=== PATIENT | male | born 1960 | race Caucasian/White ===

== ENCOUNTER 2018-12-20 17:35 | Emergency (ER) | payer OTHER ==
[~2018-12-20] VITALS: Ht 170.2 cm; Wt 89.8 kg
[2018-12-20 18:05] LABS: BASO % 0 % (0-3); EOS # 0.3 x10^3/uL (0.0-0.7); EOS % 4 % (0-3); HEMATOCRIT 52.7 % (39.0-53.0); HEMOGLOBIN 18.3 g/dL (13.0-17.5); LYMPH # 1.6 x10^3/uL (1.0-4.8); LYMPH % 25 % (24-48); MEAN CORPUSCULAR HEMOGLOBIN 32 pg (25-35); MEAN CORPUSCULAR HGB CONC 35 g/dL (31-37); MEAN CORPUSCULAR VOLUME 93 fL (79-100); MONO # 0.4 x10^3/uL (0.0-1.1); MONO % 7 % (0-9); NEUT % 63 % (31-73); PLATELET COUNT 151 x10^3/uL (140-400); RED BLOOD COUNT 5.65 x10^6/uL (4.30-5.70); RED CELL DISTRIBUTION WIDTH 13.2 % (11.5-14.5); WHITE BLOOD COUNT 6.3 x10^3/uL (4.0-11.0)
[2018-12-20 18:11] LABS: PROTHROMBIN TIME PATIENT 12.5 SEC (11.7-14.0)
[2018-12-20 18:20] LABS: CREATININE 1.2 mg/dL (0.7-1.3); GFR 62.2; POTASSIUM 4.3 mmol/L (3.5-5.1)
[2018-12-20 18:25] LABS: ALBUMIN 4.2 g/dL (3.4-5.0); ALBUMIN/GLOBULIN RATIO 1.3 (1.0-1.7); MAGNESIUM 2.2 mg/dL (1.8-2.4); TOTAL BILIRUBIN 0.6 mg/dL (0.2-1.0); TOTAL PROTEIN 7.5 g/dL (6.4-8.2)
--- NOTE | 2018-12-20 19:01 | PHYS DOC ---
Past Medical History Past Medical History: Diabetes-Type II, Hypertension Additional Past Medical Histor: "TACHYCARDIA" Past Surgical History: Pacemaker, Other Additional Past Surgical Histo: DEFIBRILLATOR Alcohol Use: Rarely Drug Use: None Adult General Chief Complaint Chief Complaint: Palpitations HPI HPI 58-year-old male with a history of what sounds to be a nonischemic cardiomyopathy with an AICD in place for about the last 20 years presents after 4 shocks today. Patient states approximately 3 PM today he heard a warnings [place] that he states sounded like an ambulance. During that time he had absolutely no symptoms he was out bending over and a wood shop. Approximately 2 hours later he received his first shock while he was at work and shortly thereafter he received another shot. He had no preceding symptoms. He called over a couple of employees to take him home so he could interrogate his pacemaker and during the ride back home which shocked twice more. After being shocked a total of 4 times he decided to come to the closest emergency department. Currently, he is having no symptoms. He states the last time he was shocked was many years ago. He states he has had his pacemaker replaced several times and has had lead malfunctions in the past.[] Review of Systems Review of Systems Constitutional: Denies fever or chills [] Eyes: Denies change in visual acuity, redness, or eye pain [] HENT: Denies nasal congestion or sore throat [] Respiratory: Denies cough or shortness of breath [] Cardiovascular: No additional information not addressed in HPI [] GI: Denies abdominal pain, nausea, vomiting, bloody stools or diarrhea [] : Denies dysuria or hematuria [] Musculoskeletal: Denies back pain or joint pain [] Integument: Denies rash or skin lesions [] Neurologic: Denies headache, focal weakness or sensory changes [] Endocrine: Denies polyuria or polydipsia [] All other systems were reviewed and found to be within normal limits, except as documented in this note. Allergies Allergies Allergies Coded Allergies Type Severity Reaction Last Updated Verified No Known Drug Allergies 12/20/18 No Physical Exam Physical Exam Constitutional: Well developed, well nourished, no acute distress, non-toxic appearance. [] HENT: Normocephalic, atraumatic, bilateral external ears normal, oropharynx moist, no oral exudates, nose normal. [] Eyes: PERRLA, EOMI, conjunctiva normal, no discharge. [] Neck: Normal range of motion, no tenderness, supple, no stridor. [] Cardiovascular:Heart rate regular rhythm, no murmur, pacemaker left upper chest [] Lungs & Thorax: Bilateral breath sounds clear to auscultation [] Abdomen: Bowel sounds normal, soft, no tenderness, no masses, no pulsatile masses. [] Skin: Warm, dry, no erythema, no rash. [] Back: No tenderness, no CVA tenderness. [] Extremities: No tenderness, no cyanosis, no clubbing, ROM intact, no edema. [] Neurologic: Alert and oriented X 3, normal motor function, normal sensory function, no focal deficits noted. [] Psychologic: Anxious. [] Current Patient Data Vital Signs Vital Signs Date Time Temp Pulse Resp B/P (MAP) Pulse Ox O2 Delivery O2 Flow Rate FiO2 12/20/18 17:40 98.7 65 18 155/75 (101) 95 Room Air 98.7 Lab Values Laboratory Tests Test 12/20/18 17:56 White Blood Count 6.3 x10^3/uL (4.0-11.0) Red Blood Count 5.65 x10^6/uL (4.30-5.70) Hemoglobin 18.3 g/dL (13.0-17.5) H Hematocrit 52.7 % (39.0-53.0) Mean Corpuscular Volume 93 fL (79-100) Mean Corpuscular Hemoglobin 32 pg (25-35) Mean Corpuscular Hemoglobin Concent 35 g/dL (31-37) Red Cell Distribution Width 13.2 % (11.5-14.5) Platelet Count 151 x10^3/uL (140-400) Neutrophils (%) (Auto) 63 % (31-73) Lymphocytes (%) (Auto) 25 % (24-48) Monocytes (%) (Auto) 7 % (0-9) Eosinophils (%) (Auto) 4 % (0-3) H Basophils (%) (Auto) 0 % (0-3) Neutrophils # (Auto) 4.0 x10^3uL (1.8-7.7) Lymphocytes # (Auto) 1.6 x10^3/uL (1.0-4.8) Monocytes # (Auto) 0.4 x10^3/uL (0.0-1.1) Eosinophils # (Auto) 0.3 x10^3/uL (0.0-0.7) Basophils # (Auto) 0.0 x10^3/uL (0.0-0.2) Prothrombin Time 12.5 SEC (11.7-14.0) Prothrombin Time INR 1.0 (0.8-1.1) Sodium Level 139 mmol/L (136-145) Potassium Level 4.3 mmol/L (3.5-5.1) Chloride Level 103 mmol/L (98-107) Carbon Dioxide Level 23 mmol/L (21-32) Anion Gap 13 (6-14) Blood Urea Nitrogen 20 mg/dL (8-26) Creatinine 1.2 mg/dL (0.7-1.3) Estimated GFR (Cockcroft-Gault) 62.2 BUN/Creatinine Ratio 17 (6-20) Glucose Level 161 mg/dL (70-99) H Calcium Level 9.0 mg/dL (8.5-10.1) Magnesium Level 2.2 mg/dL (1.8-2.4) Total Bilirubin 0.6 mg/dL (0.2-1.0) Aspartate Amino Transferase (AST) 14 U/L (15-37) L Alanine Aminotransferase (ALT) 24 U/L (16-63) Alkaline Phosphatase 63 U/L (46-116) Creatine Kinase 178 U/L (39-308) Troponin I Quantitative < 0.017 ng/mL (0.000-0.055) HP-Got-W-Type Natriuretic Peptide 26 pg/mL (0-124) Total Protein 7.5 g/dL (6.4-8.2) Albumin 4.2 g/dL (3.4-5.0) Albumin/Globulin Ratio 1.3 (1.0-1.7) Thyroid Stimulating Hormone (TSH) 1.786 uIU/mL (0.358-3.74) Laboratory Tests 12/20/18 17:56 Laboratory Tests 12/20/18 17:56 EKG EKG [] Interpretation Time: EKG: Normal sinus rhythm rate of [address]-T changes Radiology/Procedures Radiology/Procedures [] Impressions: Chest x-ray: No acute change noted as interpreted by me Course & Med Decision Making Course & Med Decision Making Pertinent Labs and Imaging studies reviewed. (See chart for details) [ED course: Evaluation reveals a 58-year-old male who is been shocked by his defibrillator 4 times today. Looking at the [employer] report it appears that he has a malfunctioning lead. I spoke with at [facility] who suggested we transfer him to [place] so they can take appropriate changes to his defibrillator. I discussed this plan with the patient and his family and they are in agreement.] Dragon Disclaimer Dragon Disclaimer This electronic medical record was generated, in whole or in part, using a voice recognition dictation system. Departure Departure Impression: Primary Impression: Malfunction of implantable defibrillator ventricular (ICD) lead Disposition: 05 TRANSFER OTHER Condition: STABLE Referrals: RAJ MEDINA (PCP) SENG BOOTH DO Dec 20, 2018 19:01
[2018-12-20 20:50] VITALS: BP 155/74
--- NOTE | 2018-12-21 07:06 | EKG ---
[facility] [address] [place] [address] Test Date: 2018-12-20 Test Time: 17:49:13 Pat Name: YASMIN ALLISON Department: Room: Gender: M Healthcare Representative: CT : 1960 Requested By: BERNADETTE WHITNEY Order Number: [id number] Reading MD: Wilner Og MD Measurements Intervals [place] Rate: 66 P: 49 [place]: 168 QRS: 49 QRSD: 102 T: -22 QT: 370 QTc: 389 Interpretive Statements SINUS RHYTHM NON-SPECIFIC ST/T CHANGES Electronically Signed On 01-02-2019 9:47:14 CDT by Wilner Og MD
--- NOTE | 2018-12-21 07:49 | RAD ---
Examination: PORTABLE CHEST 1V History: PALPITATION Comparison/Correlation: None Findings: Portable upright frontal view chest was obtained. Dual-lead left-sided ICD is present. Heart size and pulmonary vascular are normal. No infiltrate or pleural effusion. No pneumothorax. Bony structures are grossly unremarkable. Impression: No active disease. Electronically signed by: Domingo Zarate MD (12/21/2018 7:46 AM) [facility]
== END 2018-12-20 21:50 | disposition short-term general hospital (02) ==
LOC: ER 17:35
DX: T82.198A Other mechanical complication of other cardiac electronic device, initial encounter (principal); Z95.810 Presence of automatic (implantable) cardiac defibrillator; E11.9 Type 2 diabetes mellitus without complications; I10 Essential (primary) hypertension
CPT/HCPCS: 36415; 71045; 80053; 82550; 83735; 83880; 84443; 84484; 85025; 85610; 93005; 99285-25